=== PATIENT | male | born 1970 | race Caucasian/White ===

== ENCOUNTER 2020-05-12 16:14 | Emergency (ER) | payer OTHER ==
[2020-05-12] MEDS ORDERED: Ibuprofen 800 MG Tab PO ONE (16:53)
[2020-05-12] MEDS ORDERED: Acetaminophen 500 MG Tab PO ONE (16:53)
--- NOTE | 2020-05-12 18:11 | EDM.PDOC ---
ED HPI GENERAL MEDICAL PROBLEM - General Chief Complaint: Respiratory Problem Stated Complaint: COVID SYMPTOMS Time Seen by Provider: 05/12/20 16:25 Source of Information: Reports: Patient History Limitations: Reports: No Limitations - History of Present Illness INITIAL COMMENTS - FREE TEXT/NARRATIVE: Patient presented to the ED because of fever,nausea, dry cough. He also had d iarrhea for 1 day. Today he c/o dyspnea which is getting worse Headache Pain Score (Numeric/FACES): 8 Chest Pain Score (Numeric/FACES): 8 - Related Data Allergies Allergy/AdvReac Type Severity Reaction Status Date / Time No Known Allergies Allergy Verified 05/12/20 16:28 Home Meds: Home Meds NK [No Known Home Meds] 05/12/20 [History] Past Medical History Psychiatric History: Reports: Depression - Past Surgical History HEENT Surgical History: Reports: Adenoidectomy, Tonsillectomy, Other (See Below) Other HEENT Surgeries/Procedures: Uvulectomy GI Surgical History: Reports: Appendectomy Neurological Surgical History: Reports: Discectomy Other Neurological Surgeries/Procedures: L4 and L5 Social & Family History - Tobacco Use Tobacco Use Status *Q: Never Tobacco User - Caffeine Use Caffeine Use: Reports: Soda - Recreational Drug Use Recreational Drug Use: No ED ROS GENERAL - Review of Systems Review Of Systems: See Below Constitutional: Reports: Malaise, Weakness HEENT: Reports: No Symptoms Respiratory: Reports: Shortness of Breath, Cough, Sputum Cardiovascular: Reports: No Symptoms Endocrine: Reports: No Symptoms GI/Abdominal: Reports: No Symptoms Musculoskeletal: Reports: No Symptoms Skin: Reports: No Symptoms Neurological: Reports: No Symptoms Psychiatric: Reports: No Symptoms Hematologic/Lymphatic: Reports: No Symptoms ED EXAM, GENERAL - Physical Exam Exam: See Below Exam Limited By: No Limitations General Appearance: Alert, No Apparent Distress Eye Exam: Bilateral Eye: PERRL Ears: Normal External Exam, Normal Canal Nose: Normal Inspection, Normal Mucosa, No Blood Throat/Mouth: Normal Inspection, Normal Lips Head: Atraumatic Neck: Normal Inspection, Supple Respiratory/Chest: No Respiratory Distress, Chest Non-Tender Cardiovascular: Normal Peripheral Pulses, Regular Rate, Rhythm Course - Vital Signs Text/Narrative:: Labs/CXR/ result was discussed with patient DEcadeon 10 mg po x1 Zofran OFT 4 mg Last Recorded V/S: Last Vital Signs Temp 39.3 C H 05/12/20 16:57 Pulse 112 H 05/12/20 16:20 Resp 24 H 05/12/20 16:20 BP 135/79 05/12/20 16:20 Pulse Ox 98 05/12/20 16:20 - Orders/Labs/Meds Orders: Active Orders 24 hr Category Date Time Status Chest 1V Frontal [CR] Stat Exams 05/12/20 16:34 Taken CBC WITH AUTO DIFF [HEME] Stat Lab 05/12/20 16:45 Received Isolation [COMM] Routine Oth 05/12/20 16:35 Ordered Labs: Laboratory Tests 05/12/20 05/12/20 05/12/20 Range/Units 16:45 16:45 16:50 Sodium 136 (135-145) mmol/L Potassium 4.1 (3.5-5.3) mmol/L Chloride 100 (100-110) mmol/L Carbon Dioxide 22 (21-32) mmol/L BUN 14 (7-18) mg/dL Creatinine 1.6 H (0.70-1.30) mg/dL Est Cr Clr Drug Dosing 53.71 mL/min Estimated GFR (MDRD) 46 L (>60) BUN/Creatinine Ratio 8.8 L (9-20) Glucose 117 H (80-116) mg/dL Calcium 9.0 (8.6-10.2) mg/dL Total Bilirubin 0.8 (0.1-1.3) mg/dL AST 48 H (5-25) IU/L ALT 83 H (12-36) U/L Alkaline Phosphatase 68 (56-112) IU/L C-Reactive Protein 2.4 H (0.5-0.9) mg/dL Total Protein 7.1 (6.0-8.0) g/dL Albumin 4.1 (3.5-5.2) g/dL Globulin 3.0 g/dL Albumin/Globulin Ratio 1.4 SARS-CoV-2 RNA (DAVID) Positive H (NEGATIVE) Meds: Medications Discontinued Medications Generic Name Dose Route Start Last Admin Trade Name Freq PRN Reason Stop Dose Admin Acetaminophen 1,000 mg 05/12/20 16:53 05/12/20 16:57 Tylenol Extra Strength PO 05/12/20 16:54 1,000 mg ONETIME ONE Administration Ibuprofen 800 mg 05/12/20 16:53 05/12/20 16:57 Motrin PO 05/12/20 16:54 800 mg ONETIME ONE Administration Departure - Departure Time of Disposition: 18:10 Disposition: Home, Self-Care 01 Condition: Good Clinical Impression: COVID-19 - Discharge Information Instructions: COVID-19 Frequently Asked Questions Forms: ED Department Discharge Additional Instructions: [facility] read discharge instructions on COVID 19 Increase oral fluids at least 3 liters a day Take Vitamin C, D, and zinc 1 tablet daily Take ibuprofen 800 mg with tylenol 1000 mg every 8 hours as needed for pain/fever Zofran ODT 4 mg every 4 hours as needed for nausea Follow up as needed Sepsis Event Note (ED) - Evaluation Sepsis Screening Result: Possible Sepsis Risk - Focused Exam Vital Signs: Vital Signs Temp Temp Pulse Resp BP Pulse Ox 05/12/20 16:57 39.3 C H 05/12/20 16:52 39.3 C H 05/12/20 16:20 39.3 C H 112 H 24 H 135/79 98 - My Orders Last 24 Hours: My Active Orders 05/12/20 16:34 Chest 1V Frontal [CR] Stat 05/12/20 16:35 Isolation [COMM] Routine 05/12/20 16:45 CBC WITH AUTO DIFF [HEME] Stat - Assessment/Plan Last 24 Hours: My Active Orders 05/12/20 16:34 Chest 1V Frontal [CR] Stat 05/12/20 16:35 Isolation [COMM] Routine 05/12/20 16:45 CBC WITH AUTO DIFF [HEME] Stat
== END 2020-05-12 19:04 | disposition home or self-care (01) ==
LOC: FB.ED 16:14
DX: U07.1 COVID-19 (principal)
CPT/HCPCS: 36415; 71045; 80053; 85025; 86140; 87635; 87804; 99284; A9270; 99283; U0002